=== PATIENT | male | born 1980 | race Caucasian/White ===

== ENCOUNTER 2021-08-23 12:36 | Emergency (ER) | payer SELFPAY ==
[2021-08-23 12:43] VITALS: BP 124/82; PULSE 94; RESP 16; TEMP 36.4; O2SAT 100
--- NOTE | 2021-08-23 12:45 | DI.RAD_ITS ---
Exam(s) XR HIP RT COMPLETE AP PELVIS EXAM: XR HIP RT COMPLETE AP PELVIS CLINICAL HISTORY: Right hip pain and pelvis pain. TECHNIQUE: 2D digital imaging was performed of the right hip. Two images were obtained. AP pelvis a nd lateral right hip views were obtained. COMPARISON: No exams were available for comparison FINDINGS: BONES: No acute fracture is present. No bony destructive lesion is seen. JOINTS: No dislocation present. Sideplate and screws are seen traversing the symphysis pubis. There is a single screw through the left sacroiliac joint. SOFT TISSUE: Normal. IMPRESSION: 1. No acute abnormality. 2. Postsurgical changes in the pelvis. DATA REPOSITORY: RADIATION DOSE DELIVERED:
--- NOTE | 2021-08-23 12:45 | DI.RAD_ITS ---
Exam(s) XR LUMBAR SPINE COMPLETE EXAM: XR LUMBAR SPINE COMPLETE CLINICAL HISTORY: Right side radiculopathy, hx pelvis hardware. TECHNIQUE: 2D digital imaging was performed. COMPARISON: No exams were available for comparison FINDINGS: There is a lateral to medial directed single screws through the left sacroiliac joint. There is no evidence of fracture . No pars defects. There is disc space narrowing at L3-4 and L4-5 levels. Slight retro listhesis of L3 relative to L4. May be associated with element of spinal canal stenosis. IMPRESSION: Degenerative disc disease. Also mild retrolisthesis L3 upon L4 with disc space narrowing at this lev el also evident. There may be an element of spinal canal stenosis here. Screw across the left sacroiliac joint. DATA REPOSITORY: RADIATION DOSE DELIVERED:
--- NOTE | 2021-08-23 13:00 | W.ED.GENAD ---
Discharge Plan Disposition Patient Disposition: HOME Condition: Stable Discharge Details Clinical Impression: Lumbago with sciatica, right side Primary Care Provider: Brandon Kaiser ED Provider: Kelsey Khan Home Meds and New Rx's Prescriptions: New cyclobenzaprine 10 mg tablet 10 mg PO TID PRN (Reason: muscle spasm) Qty: 10 RF: 0 Discharge Instructions Instructions: Sciatica (ED), Lumbar Radiculopathy (ED) Additional Instructions: X-rays at this time show some degenerative changes no abnormality noted on the hardware. Findings are consistent with sciatica. Please take the muscle relaxers as directed and ibuprofen Tylenol. Alternate ice and heat. Please follow-up with pain and spine and/or orthopedics as needed for any worsening pain. You may also consider following up with a solar energy specialist such at [facility]. Please also follow-up with your primary care provider. Stand Alone Forms: Work Release Referrals: [facility] [Outside] (Call for environmental compliance specialist) Brandon Kaiser [Primary Care Provider] - 5 days Medical Decision Making Urinalysis lumbar spine and pelvic x-rays ordered. No evidence for cauda equina, patient denies any reports of loss of bowel or bladder control or saddle anesthesia. Differential diagnosis includes but not limited to sciatica, hardware abnormality, new fracture. EXAM: XR LUMBAR SPINE COMPLETE FINDINGS: There is a lateral to medial directed single screws through the left sacroiliac joint. There is no evidence of fracture . No pars defects. There is disc space narrowing at L3-4 and L4-5 levels. Slight retro listhesis of L3 relative to L4. May be associated with element of spinal canal stenosis. IMPRESSION: Degenerative disc disease. Also mild retrolisthesis L3 upon L4 with disc space narrowing at this level also evident. There may be an element of spinal canal stenosis here. Screw across the left sacroiliac joint. Patient given Flexeril muscle relaxer instructed to follow-up with orthopedics and/or solar energy specialist. Instructed to follow-up with PCP. Discussed strict return instructions including loss of bowel or bladder, numbness to the groin area or problems urinating. This text was generated using [employer]AR[employer] system, please disregard any oddities of phrase or misspellings. HPI General Mode of arrival: ambulatory. Date/Time Provider Initiated Documentation: 08/23/21 12:51. Limitations to Documentation: no limitations. Information obtained by: patient. HPI Narrative: 41-year-old male presents to the ER chief complaint of right lower back pain right hip pain with radiation into the right anterior thigh down to the knee. He reports that this is gotten worse since Saturday. 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 He does have a past medical history of a pelvic fracture from 17 years ago with hardware in place. He denies any loss of bowel or bladder control denies any saddle anesthesia, he denies any urinary hesitancy or constipation. He has been taking ibuprofen at home with little to no relief. He denies any problems urinating or burning with urination. He has not had any recent x-rays. Other past medical history includes a hernia. Related Data Home Medications Medication Instructions Recorded Confirmed cyclobenzaprine 10 mg PO TID PRN #10 tab 08/23/21 Previous Rx's Medication Instructions Recorded cyclobenzaprine 10 mg PO TID PRN #10 tab 08/23/21 Allergies Allergy/AdvReac Type Severity Reaction Status Date / Time No Known Allergies Allergy Unverified 08/23/21 12:49 General Stated Complaint: Nk/Back Pain ROYER: 3 Review of Systems All systems reviewed & are unremarkable except as noted in HPI and below Musculoskeletal Musculoskeletal: Reports abnormal gait, Reports back pain, Reports limited range of motion, Denies numbness, Reports radiating pain into limb and Reports stiffness Neurologic Neurologic: Reports abnormal gait and Denies numbness PFSH Social History Smoking/Tobacco Use Status: Current every day Smoking risk assessment performed?: Yes Alcohol Intake: current Alcohol Intake frequency: holidays/special occasions only Drug use: Never Substance use type: does not use Do you feel safe at home: Yes Do you feel safe in your relationship?: Yes Exam Narrative Exam Narrative: Constitutional: Alert and oriented x3. Appears stated age. Normal body habitus. Head: Normocephalic, no trauma. Eyes: Pupils PERRLA, Red reflex noted, EOM's intact. Eyelids symmetrical without lesions, discharge, or swelling. ENT: Bilateral TM's WNL, External ear normal to inspection, no mastoid TTP, swelling, or erythema, Nasal turbinates WNL, no nasal discharge. Normal dentition, Posterior pharynx WNL, no exudate. Chest: RRR, Normal S1, S2, distal pulses intact. Resp: Lungs clear to auscultation bilaterally, no wheezes, rales, or rhonchi. Musculoskeletal: Stiff gait, right iliac crest is deviated down to the right, no crepitus, no midline tenderness. Does have some tenderness over the sciatic nerve in the right gluteal area with palpation. Skin: No suspicious rashes or lesions. Capillary refill less than 2 sec. Neurologic: Cranial nerves II-XII intact. Alert and oriented x 3. DTR's intact. Hematologic/Lymphatic: No ecchymosis, no lymphadenopathy. Course Vital Signs Vital signs: Vital Signs Temperature 36.4 C L 08/23/21 12:43 Pulse 94 H 08/23/21 12:43 Respiratory Rate 16 08/23/21 12:43 Blood Pressure 124/82 08/23/21 12:43 Pulse Oximetry 100 08/23/21 12:43 Temperature 36.4 C L 08/23/21 12:43 Temperature Source Skin 08/23/21 12:43 Pulse 94 H 08/23/21 12:43 Respiratory Rate 16 08/23/21 12:43 Respiratory Effort 08/23/21 12:49 Blood Pressure 124/82 08/23/21 12:43 Blood Pressure Position Sitting 08/23/21 12:43 Pulse Oximetry 100 08/23/21 12:43 Oxygen Delivery Method Room Air 08/23/21 12:43 Oxygen Flow Rate 0 08/23/21 12:43 Pain Level 7 08/23/21 12:43
[2021-08-23 14:20] LABS: Bilirubin Negative (Negative); Blood Negative (Negative); Clarity Clear (Clear); Glucose Negative (Negative); Ketones Negative (Negative); Leukocyte Esterase Negative (Negative); Nitrite Negative (Negative); Specific Gravity 1.025 (1.005-1.025); Urobilinogen 0.2 EU/dL (Up TO 0.2)
[2021-08-23] MEDS: Cyclobenzaprine 10 MG TAB PO (15:17)
[2021-08-23] MEDS: Ibuprofen 600 MG TAB PO (15:17)
[2021-08-23 15:22] VITALS: BP 123/92; PULSE 86; TEMP 36.3; O2SAT 98
== END 2021-08-23 15:40 | disposition home or self-care (01) ==
PROVIDERS: Emergency Provider Registered Nurse Emergency; PCP Family Medicine
DX: M54.41 Lumbago with sciatica, right side (principal)
CPT/HCPCS: 99284; 72110; 73502; 81003

== ENCOUNTER 2022-06-07 16:25 | Emergency (ER) | payer SELFPAY ==
[2022-06-07] VITALS (24 sets, daily range): BP systolic 138–151; BP diastolic 97–132; PULSE 70–129; RESP 10–22; TEMP 36.8; O2SAT 97–100
--- NOTE | 2022-06-07 16:15 | RT.EKG_ITS ---
APPROVED REPORT Exam: Resting ECG Reason for Exam: chest pain Patient Location: E HR:82 bpm ECG Measurements Heart Rate [address] 142 P 56 QRSd 97 QRS 96 QT 347 T 58 QTc 407 Conclusion Sinus rhythm...normal P axis, V-rate 60- 99 Probable left atrial enlargement...P >50mS, <-0.10mV V1 Consider anterolateral infarct...Q >30mS, I aVL V3-V6,I,aVL. Sinus. Normal axis.Peaked T waves anterolateral leads. No STEMI. I have reviewed and interpreted ECG and agree with software generated interpretation.
--- NOTE | 2022-06-07 17:30 | NUR.NOTE ---
Pt resting in bed, GI cocktail administered per MD order.Pt tolerated well.
[2022-06-07 17:46] LABS: Abs Immature Grans 0.02 10^3/uL (0.0-0.06); Absolute Basophil Count 0.02 10^3/uL (0.0-0.2); Absolute Eosinophil Count 0.14 10^3/uL (0.0-0.7); Absolute Lymphocyte Count 2.89 10^3/uL (1.2-3.4); Absolute Monocyte Count 0.87 10^3/uL (0.1-0.8); Absolute Neutrophil Count 7.14 10^3/uL (1.2-6.7); Basophils % 0.2; Eosinophils % 1.3; HCT 47.1 % (40.0-50.0); HGB 16.1 g/dL (13.5-17.5); Immature Grans % 0.2; Lymphocytes % 26.1; MCH 30.6 pg (27.0-33.0); MCHC 34.2 % (32.0-36.0); MCV 89 fL (80-95); MPV 9.9 fL (8.0-11.0); Monocytes % 7.8; Neutrophils % 64.4; Platelet Count 256 10^3/uL (130-400); RBC 5.27 10^6/uL (4.36-5.78); RDW 12.6 % (11.8-14.1); RDW-SD 41.4 fL; WBC 11.09 10^3/uL (4.4-10.8)
[2022-06-07 18:00] LABS: Lipase 76 U/L (73-393)
--- NOTE | 2022-06-07 18:00 | DI.CT_ITS ---
Exam(s) CT CHEST PE CTA EXAM: CT CHEST PE CTA CLINICAL HISTORY: chest pain. TECHNIQUE: Imaging Protocol: Axial CT angiography was performed with multi-slice acquisition and mu lti-planar and/or 3D reconstructions. CONTRAST MATERIAL: Intravenous: Omnipaque 350 contrast volume:100 mL COMPARISON: CR XR LUMBAR SPINE COMPLETE from 08/23/2021 FINDINGS: Tracheobronchial tree: Patent where visualized. Pulmonary parenchyma: No consolidation or dominant measurable mass. No architectural distortion. Mild dependent atelectasis is present bilaterally. Pulmonary Arteries: No evidence of filling defect to suggest pulmonary emboli. Mediastinum and Carline: No dominant adenopathy or fluid collection. The esophagus is unremarkable. Visualized thyroid gland: Unremarkable. Pleura: No effusion or pneumothorax. Heart: The heart is not dilated. Minimal coronary artery calcification. No pericardial effusion. Aorta: Thoracic aorta non-dilated. No evidence of dissection. Upper abdomen: Unremarkable. Soft tissues: Unremarkable. Bones: Within normal limits for the patient's age.There are few mild chronic compression deformities. IMPRESSION: No evidence of pulmonary embolism, thoracic aortic dissection or aneurysm. RADIATION DOSE DELIVERED: 515.18mGy.cm Total DLP DATA REPOSITORY: All CT scans at this facility are submitted to the National Radiology Data Registry (NRDR) Dose Index Registry (DIR) with the [employer] (ACR). RADIATION OPTIMIZATION: All CT scans at this facility use at least one of these dose optimization te chniques: automated exposure control; mA and/or kV adjustment per patient size (includes targeted exa ms where dose is matched to clinical indication); or iterative reconstruction.
--- NOTE | 2022-06-07 18:00 | RT.EKG_ITS ---
APPROVED REPORT Exam: Resting ECG Reason for Exam: chest pain Patient Location: E HR:84 bpm ECG Measurements Heart Rate 84 AXIS MS 156 P 50 QRSd 95 QRS 94 QT 332 T 57 QTc 392 Conclusion Sinus rhythm...normal P axis, V-rate 60- 99 Consider anterolateral infarct...Q >30mS, I aVL V3-V6,I,aVL. Sinus. ? 1mm ST elevation in aVL and V2. Some improvement in peaked T waves in anterolateral leads. N o STEMI.
[2022-06-07 18:05] LABS: ALT 49 U/L (16-63); AST 81 U/L (15-37); Albumin 4.1 g/dL (3.4-5.0); Alkaline Phosphatase 56 U/L (46-116); Anion Gap 10.4 mmol/L (3-11); BUN 9 mg/dL (7-18); Bilirubin, Total 0.3 mg/dL (0.2-1.0); CO2 27.6 mmol/L (21.0-32.0); CREATININE 0.8 mg/dL (0.70-1.30); Calcium 9.6 mg/dL (8.5-10.1); Chloride 103 mmol/L (98-107); Glucose 98 mg/dL (74-106); Potassium 3.7 mmol/L (3.5-5.1); Sodium 141 mmol/L (136-145); Total Protein 7.6 g/dL (6.4-8.2)
[2022-06-07 18:07] LABS: Troponin I 5041 ng/L (<or=60)
[2022-06-07] MEDS: Aspirin 81 MG CHEW 324 MG CH (18:12)
--- NOTE | 2022-06-07 18:21 | NUR.NOTE ---
Pt to CT.:
[2022-06-07] MEDS: Omnipaque 350 MG/ML 100 ML BTL IJ (18:44)
--- NOTE | 2022-06-07 18:54 | DI.VRAD_ITS ---
PROCEDURE INFORMATION: Exam: CTA Chest With Contrast Exam date and time: 06/07/2022 6:21 PM Age: 42 years old Clinical indication: Pain; Chest pressure; Additional info: Chest pain TECHNIQUE: Imaging protocol: Computed tomographic angiography of the chest with contrast. 3D rendering (Not supervised by radiologist): MIP and/or 3D reconstructed images were created by the technologist. Radiation optimization: All CT scans at this facility use at least one of these dose optimization techniques: automated exposure control; mA and/or kV adjustment per patient size (includes targeted exams where dose is matched to clinical indication); or iterative reconstruction. Contrast material: OMNI 350; Contrast volume: 100 ml; Contrast route: INTRAVENOUS (IV); COMPARISON: No relevant prior studies available. FINDINGS: Pulmonary arteries: Normal. No pulmonary emboli. Aorta: Unremarkable. No aortic aneurysm. No aortic dissection. Lungs: Unremarkable. No consolidation. No masses. Pleural spaces: Unremarkable. No pneumothorax. No pleural effusion. Heart: Unremarkable. No cardiomegaly. No pericardial effusion. Lymph nodes: Unremarkable. No enlarged lymph nodes. Bones/joints: Unremarkable. No acute fracture. Soft tissues: Unremarkable. IMPRESSION: No acute findings. Dictated and Authenticated by: Rajinder Alvarez MD. Ordering:RAYRAY Lee MD
--- NOTE | 2022-06-07 18:56 | W.ED.GENAD ---
Discharge Plan Disposition Patient Disposition: [facility] Condition: Critical Discharge Details Clinical Impression: Non-STEMI (non-ST elevated myocardial infarction) Primary Care Provider: Brandon Kaiser ED Provider: Jesus Batista Home Meds and New Rx's Prescriptions: No Action No Known Home Meds Discharge Data Discharge Date/Time-TO BE ENTERED AT DEPARTURE: 06/07/22 20:45 Medical Decision Making Patient presenting to the emergency department for chief complaint of chest pain. He states that this started yesterday while eating. He has taken multiple antacids and baby aspirin with no benefit. Patient states that due to family history of early cardiac problems is why he is coming into the emergency department. Physical exam shows tenderness to the mid sternum that is reproducible but no evidence or history of injury or trauma. Exam is otherwise unremarkable. We will plan on checking cardiac labs due to family history and given that onset of symptoms is while eating we will give GI cocktail. We will also perform EKG and chest x-ray. Please see physician interpretation for full interpretation of initial EKG but patient is in sinus rhythm with a rate of 84 and some peaked T waves are noted otherwise no obvious ischemic findings.. Reviewed labs and patient has mild elevation of WBCs at 11.9, slight elevation of neutrophils and monocytes otherwise nondiagnostic CBC. CMP is unremarkable except for AST of 81. Patient does have positive troponin at 5041. Repeat EKG was performed and please see physician interpretation for full interpretation of EKG but does show maybe some slight changes in V2 but no obvious STEMI or reciprocal changes noted. Given patient's stature I will perform CT imaging of the chest to make sure that patient is not dissecting. Will also plan on consulting cardiology at [facility] and as soon as rate comes back on CT we will start heparin and Plavix for concern of NSTEMI. Patient is still in discomfort so we will give morphine. We will also give patient 300 of Plavix and start patient on heparin bolus. [facility] stated no bed availability but was willing to consult. Did accept consult but pending consultation was planning on reaching out to other facilities given patient's significant symptoms. Patient reassessed and stated no improvement of discomfort after morphine. Spoke with performance test architect Dr. Worrell at [facility] and after full discussion of case he agreed to have patient emergently transferred to the emergency department for intervention consideration. Only recommendation at this time is to give additional 300 mg of Plavix pending transport. Spoke with Dr. Cartwright ER physician who also accepted patient in transfer. Patient is agreeable to transport and will arrange transportation for patient via medic. Given that patient remains slightly hypertensive and continues with pain pending medical transport will give sublingual nitro to see if this also helps with discomfort level. Imaging Data Radiologic Study: Imaging: CT Scan Radiologist's impression: FINDINGS: Pulmonary arteries: Normal. No pulmonary emboli. Aorta: Unremarkable. No aortic aneurysm. No aortic dissection. Lungs: Unremarkable. No consolidation. No masses. Pleural spaces: Unremarkable. No pneumothorax. No pleural effusion. Heart: Unremarkable. No cardiomegaly. No pericardial effusion. Lymph nodes: Unremarkable. No enlarged lymph nodes. Bones/joints: Unremarkable. No acute fracture. Soft tissues: Unremarkable. IMPRESSION: No acute findings. HPI General Mode of arrival: ambulatory. Date/Time Provider Initiated Documentation: 06/07/22 16:31. Limitations to Documentation: no limitations. Information obtained by: patient and RN notes reviewed. History of Present Illness 42 year old M presents to the emergency department with the chief complaint of Chest pain, described as moderate, with intensity rated at 6. Quality is described as aching and sharp, and is localized to the chest. Patient reports no radiation. Patient started experiencing this day(s) and it has been constant. No relieving factors improve symptom(s), Eating worsens symptoms . Patient notes no other symptoms.. Patient did receive the following treatments prior to arrival, other (Multiple antacids and baby aspirin yesterday) Related Data Home Medications Medication Instructions Recorded Confirmed Unknown [No Known Home Meds] 06/07/22 06/07/22 Allergies Allergy/AdvReac Type Severity Reaction Status Date / Time No Known Allergies Allergy Unverified 06/07/22 16:30 General Stated Complaint: Chest Pain ROYER: 3 Review of Systems Constitutional Constitutional: Denies chills, Denies fever(s) and Denies malaise Cardiovascular Cardiovascular: Reports as per HPI, Reports chest pain, Denies chest pain with activity, Denies syncope, Denies irregular heart rhythm, Denies palpitations and Denies dyspnea Respiratory Respiratory: Denies cough, Denies hemoptysis and Denies dyspnea Gastrointestinal Gastrointestinal: Denies abdominal pain, Denies nausea and Denies vomiting Neurologic Neurologic: Denies syncope Psychiatric Psychiatric: Denies anxiety Endocrine Endocrine: Denies cold intolerance, Denies heat intolerance and Denies palpitations PFSH All Active Problems (Updated 06/07/22 @ 20:17 by Jesus Batista NP) Lumbago with sciatica, right side (Acute) Non-STEMI (non-ST elevated myocardial infarction) (Acute) Social History Smoking/Tobacco Use Status: Current every day Tobacco Type: cigarettes Smoking risk assessment performed?: Yes Alcohol Intake: current Alcohol Intake frequency: holidays/special occasions only Drug use: Never Substance use type: does not use Do you feel safe at home: Yes Do you feel safe in your relationship?: Yes Exam Const General: cooperative, healthy appearing, comfortable, no acute distress, not diaphoretic and not ill appearing Nutritional Appearance: average body habitus Orientation: alert, awake and oriented x3 Limitations: mental status not altered Neck Neck: normal visual inspection, full ROM, trachea midline, supple and no anterior neck swelling Thyroid: thyroid normal Carotids: normal carotid upstroke and no bruits Chest Chest: normal inspection of the chest Resp Effort & Inspection: normal respiratory effort and able to speak in complete sentences Auscultation: clear to auscultation bilaterally Cardio Jugular venous pressure: no JVD Palpation: normal PMI Rate: regular rate Rhythm: regular rhythm Heart Sounds: S1 normal, S2 normal, no click, no gallops, no murmurs and no rubs Bruits: no abdominal aortic bruits and no carotid bruits Pulses: radial pulses present bilaterally 2+ GI Inspection: normal to inspection Palpation: soft, no aortic enlargement, no pulsatile masses and nontender Auscultation: normal bowel sounds Skin General skin exam: no rashes or lesions noted Neuro General: patient alert, patient awake, patient oriented x3, tone normal and moves all extremities Course Vital Signs Vital signs: Vital Signs Temperature 36.8 C 06/07/22 16:27 Pulse 83 06/07/22 16:27 Respiratory Rate 16 06/07/22 16:27 Blood Pressure 149/97 H 06/07/22 16:27 Pulse Oximetry 99 06/07/22 16:27 Temperature 36.8 C 06/07/22 16:27 Pulse 89 06/07/22 17:30 Pulse 76 06/07/22 18:40 Respiratory Rate 12 06/07/22 18:40 Respiratory Effort 06/07/22 17:15 Respiratory Pattern Normal 06/07/22 17:15 Blood Pressure 151/106 H 06/07/22 18:55 Blood Pressure Position Supine 06/07/22 16:27 Pulse Oximetry 100 06/07/22 18:40 Oxygen Delivery Method Room Air 06/07/22 17:30 Oxygen Flow Rate 0 06/07/22 17:30 Pain Level 7 06/07/22 17:25 Lab/Test Results Lab/Test Results: Laboratory Tests Range/Units 06/07/22 06/07/22 06/07/22 17:37 17:37 17:37 WBC (4.4-10.8) 10^3/uL 11.09 H RBC (4.36-5.78) 10^6/uL 5.27 Hgb (13.5-17.5) g/dL 16.1 Hct (40.0-50.0) % 47.1 MCV (80-95) fL 89 MCH (27.0-33.0) pg 30.6 MCHC (32.0-36.0) % 34.2 RDW (11.8-14.1) % 12.6 Plt Count (130-400) 10^3/uL 256 MPV (8.0-11.0) fL 9.9 Immature Gran % 0.2 Neutrophils % 64.4 Lymphocytes % 26.1 Monocytes % 7.8 Eosinophils % 1.3 Basophils % 0.2 Nucleated RBC % (0.0-0.3) % 0.0 Absolute Neutrophils (1.2-6.7) 10^3/uL 7.14 H Absolute Lymphocytes (1.2-3.4) 10^3/uL 2.89 Absolute Monocytes (0.1-0.8) 10^3/uL 0.87 H Absolute Eosinophils (0.0-0.7) 10^3/uL 0.14 Absolute Basophils (0.0-0.2) 10^3/uL 0.02 Sodium (136-145) mmol/L 141 Potassium (3.5-5.1) mmol/L 3.7 Chloride (98-107) mmol/L 103 Carbon Dioxide (21.0-32.0) mmol/L 27.6 Anion Gap (3-11) mmol/L 10.4 BUN (7-18) mg/dL 9 Creatinine (0.70-1.30) mg/dL 0.8 Estimated GFR/1.73 m2 (mL/min/1.73m2) >= 60.00 Glucose (74-106) mg/dL 98 Calcium (8.5-10.1) mg/dL 9.6 Magnesium (1.8-2.4) mg/dL 2.0 Total Bilirubin (0.2-1.0) mg/dL 0.3 AST (15-37) U/L 81 H ALT (16-63) U/L 49 Alkaline Phosphatase (46-116) U/L 56 Troponin I (<or=60) ng/L 5041 H* Total Protein (6.4-8.2) g/dL 7.6 Albumin (3.4-5.0) g/dL 4.1 Lipase (73-393) U/L 76
[2022-06-07] MEDS: MORPHine 4 MG/ML SYR IVP (19:06)
[2022-06-07] MEDS: Clopidogrel 300 MG TAB PO ×2 (19:22→20:21)
[2022-06-07 20:16] LABS: Source Nasopharynx
[2022-06-07 20:18] LABS: PTT Activated 24.9 sec (21.0-27.5); Prothrombin Time 9.9 sec (9.3-11.0)
[2022-06-07] MEDS: nitroGLYcerin 0.4 MG TAB SL (20:27)
--- NOTE | 2022-06-07 20:52 | NUR.NOTE ---
Report given to Alta YU at [facility] ER. Pt transferred via EMS on stretcher, VSS, alert and oriented x3. Left with all belongings. :
[2022-06-07 21:07] LABS: COVID-19 PCR Negative (Negative)
== END 2022-06-07 20:45 ==
PROVIDERS: Physician Assistant; Emergency Provider Nurse Practitioner Family; PCP Family Medicine
DX: I21.4 Non-ST elevation (NSTEMI) myocardial infarction (principal); D72.829 Elevated white blood cell count, unspecified; F17.210 Nicotine dependence, cigarettes, uncomplicated; Z20.822 Contact with and (suspected) exposure to COVID-19
CPT/HCPCS: 71275; 80053; 83690; 87635; 93005; 96374; 96375; 99285; 83735; 84484; 85025; 85610; 85730; 93010; 99284; J2270; J3490

== ENCOUNTER 2022-07-05 10:46 | Outpatient (CLI) | payer SELFPAY ==
--- NOTE | 2022-07-05 10:45 | RT.EKG_ITS ---
APPROVED REPORT Exam: Resting ECG Reason for Exam: CAD, MO Patient Location: O HR:82 bpm ECG Measurements Heart Rate 82 AXIS ME 146 P 73 QRSd 97 QRS 96 QT 347 T 70 QTc 406 Conclusion Sinus rhythm...normal P axis, V-rate 50- 99 Borderline right axis deviation...QRS axis ( 90, 99) age<55 Baseline wander in lead(s) V3
== END 2022-07-05 10:47 | disposition home or self-care (01) ==
LOC: DI.CARD 10:47
PROVIDERS: PCP Family Medicine; Visit Provider Internal Medicine Cardiovascular Disease
DX: I21.4 Non-ST elevation (NSTEMI) myocardial infarction (principal); I25.10 Atherosclerotic heart disease of native coronary artery without angina pectoris; R94.31 Abnormal electrocardiogram [ECG] [EKG]
CPT/HCPCS: 93010